=== PATIENT | male | born 1950 | race Caucasian/White ===

== ENCOUNTER → 2024-01-20 13:20 | Outpatient (REF) | payer OTHER, SELFPAY | LOC: RAD 13:20 | PROVIDERS: ATTENDING PHYSICIAN Internal Medicine; FAMILY PHYSICIAN Family Medicine | DX: I10 Essential (primary) hypertension (principal); N20.0 Calculus of kidney; N18.31 Chronic kidney disease, stage 3a | CPT/HCPCS: 76775 ==

== ENCOUNTER → 2024-03-01 13:55 | Outpatient (REF) | payer OTHER, SELFPAY | LOC: RAD 13:55 | PROVIDERS: ATTENDING PHYSICIAN Specialist; FAMILY PHYSICIAN Family Medicine; REFERRING PHYSICIAN Internal Medicine | DX: N20.0 Calculus of kidney (principal) | CPT/HCPCS: 74018 ==

== ENCOUNTER 2024-03-19 09:10 | Emergency (ER) | payer OTHER, SELFPAY ==
[2024-03-19 09:11] VITALS: BP 170/83
[2024-03-19 09:37] LABS: % Eosinophils 1.8 % (0-6); % Immature Granulocytes 0.4 % (0-0.5); % Lymphocytes 18.9 % (20.5-51.1); % Monocytes 7.4 % (1.7-9.3); % Neutrophils 70.5 % (42.2-75.2); Absolute Basophils 0.1 10^3/uL (0-0.2); Absolute Eosinophils 0.2 10^3/uL (0-0.7); Absolute Lymphocytes 1.8 10^3/uL (1.2-3.4); Absolute Monocytes 0.7 10^3/uL (0.1-0.6); Absolute Neutrophils 6.7 10^3/uL (1.4-6.5); Hematocrit 46.2 % (39.0-52.0); Hemoglobin 15.8 g/dL (13.0-18.0); Mean Corp Hgb Conc. 34.2 g/dL (33.0-37.0); Mean Corpuscular Hgb 30.7 pg (27.0-31.0); Mean Corpuscular Volume 89.7 fL (80.0-94.0); Mean Platelet Volume 9.6 fL (7.4-10.4); Nucleated Red Blood Cells % 0 % (-); Platelet Count 160 10^3/uL (130-400); Red Blood Cell Count 5.15 10^6/uL (4.70-6.10); Red Cell Dist. Width 12.4 % (11.5-14.5); White Blood Cell Count 9.4 10^3/uL (4.8-10.8)
[2024-03-19 10:01] LABS: ALT (SGPT) 33 U/L (0-50); AST (SGOT) 39 U/L (17-59); Albumin 4.7 g/dl (3.5-5.0); Alkaline Phosphatase 78 U/L (38-126); Blood Urea Nitrogen 18 mg/dl (9-20); Calcium 9.3 mg/dl (8.4-10.2); Carbon Dioxide 23 mmol/L (22-30); Chloride 102 mmol/L (98-107); Glucose 245 mg/dl (70-99); Potassium 4.4 mmol/L (3.5-5.1); Sodium 140 mmol/L (135-145); Total Bilirubin 0.7 mg/dl (0.2-1.3); Total Protein 7.1 g/dl (6.3-8.2); Urine Albumin Trace (Neg - Trace); Urine Bilirubin Negative (Negative); Urine Character Clear (Clear); Urine Color Yellow; Urine Glucose 3+ (Negative); Urine Ketone Negative (Negative); Urine Leukocyte Negative (Negative); Urine Nitrite Negative (Negative); Urine Occult Blood 2+ (Negative); Urine Urobilinogen Negative (Neg - 1+); eGFR 39.25
[2024-03-19 10:34] LABS: Urine Mucus Many
[2024-03-19 10:36] LABS: Urine Amorphous Seen; Urine Red Blood Cell 30-40 /HPF (0-2); Urine Squamous Cell 0-2 /LPF (Few); Urine White Cell 0-2 /HPF (0-5)
--- NOTE | 2024-03-19 11:46 | ED.GENMED ---
History of Present Illness
General
Chief Complaint: Flank Pain
Time Seen by Provider: 03/19/24 11:22
History of Present Illness
History of Present Illness:
Patient is a 73-year-old male with past medical history of type 2 diabetes mellitus, CAD with history of prior OR, hypertension, hyperlipidemia, sleep apnea on CPAP, prior tobacco use, glaucoma, and history of prior kidney stones, here today for
evaluation of a suspected kidney stone. Patient states approximately 1 hour prior to arrival he developed pain along his right lower quadrant/inguinal region. Pain is nonradiating. No back pain. No pain into the testicles. He endorses slight
discomfort with urination but denies hematuria. No fevers or vomiting. No diarrhea. Patient was last seen in October 2022 for a ureteral stone. He was found to have a 4 mm stone in the distal left ureter. Patient states his stones typically self
pass and he has never previously required lithotripsy or surgical intervention. Patient does currently follow with a urologist and chlorination operator.
Past History
Past History
ED Past Medical History: CAD, Cancer (Basal cell Skin cancer), HTN, Hypercholesterolemia, NIDDM, OR and Other (Diverticulitis, Kidney stones, Sleep apnea uses CPAP)
ED Past Surgical History: Cardiac (PTCA with stent mid LAD December 2017) and Orthopedic (Left knee arthroscopy, left arm bicept/tendon repair)
Social History
Tobacco: Former smoker (Occasional cigars)
Alcohol: None
Drug: None
Personal:
Living: with family
Employment: Employed
Family History
Family History: CAD
Review of Systems
Review of Systems
All Other Systems: ROS reviewed and negative except as documented in HPI and ROS
Phy Exam
Physical Exam
Physical Exam:
GENERAL: Alert , in no apparent distress
EYE: pupils equal and reactive
NECK: Supple, no significant adenopathy.
ENT: o/p clr, mmm.
CARDIAC: Regular rate and rhythm .
LUNGS: Clear breath sounds bilaterally, no acute respiratory distress, no wheezes/rales/rhonchi
ABDOMEN: Soft, without focal tenderness, no r/g, no cvat
GENITOURINARY: Normal anatomy. No tenderness. No masses. No swelling. No rashes or lesions
NEUROLOGICAL: Alert and oriented, no focal neuro deficits
SKIN: Warm and dry, skin intact.
MUSCULOSKELETAL: No edema, well perfused.
PSYCH: Normal and appropriate interaction.
Course
Orders/Labs/Results
Orders:
Orders
03/19/24 09:21
CT Abd/pel Without Iv Or Oral Urgent
Comment:
Reason For Exam: R sided kidney stone
03/19/24 09:28
CBC/With Diff [Complete Blood Count/With Diff] Urgent
Comprehensive Metabolic Panel Urgent
Urinalysis Reflex To Culture Urgent
Date Specimen was Collected: 03/19/24
Time Specimen was Collected: 09:17
Urine Microscopic Reflex Cult Urgent
03/19/24 12:55
0.9% Sodium Chloride 1000 ml [Nss] 1,000 ml IV BOLUS
Abnormal Lab Results
03/19/24
09:28
Absolute Neuts (auto) 6.7 H 10^3/uL
(1.4-6.5)
Absolute Monos (auto) 0.7 H 10^3/uL
(0.1-0.6)
Lymphocytes % 18.9 L %
(20.5-51.1)
Creatinine 1.8 H mg/dL
(0.7-1.3)
Glucose 245 H mg/dl
(70-99)
Ur Occult Blood Reflex 2+ A
(Negative)
Urine RBC 30-40 A /HPF
(0-2)
Urine Glucose 3+ A
(Negative)
03/19/24 09:28
03/19/24 09:28
Vital Signs
Initial and Last Documented VS:
Initial Vital Signs
Temp Pulse Resp BP Pulse Ox
98 F 60 18 170/83 98
03/19/24 09:11 03/19/24 09:11 03/19/24 09:11 03/19/24 09:11 03/19/24 09:11
Last Documented Vital Signs
Temp Pulse Resp BP Pulse Ox
98 F 58 16 125/74 97
03/19/24 09:11 03/19/24 14:00 03/19/24 14:00 03/19/24 14:00 03/19/24 14:00
MDM/Problems Addressed
Differential Diagnosis Includes:
Patient is a 73-year-old male with past medical history of type 2 diabetes mellitus, CAD with history of prior OR, hypertension, hyperlipidemia, sleep apnea on CPAP, prior tobacco use, glaucoma, and history of prior kidney stones, here today for
evaluation of a suspected kidney stone. Overall, patient appears very well. Physical examination described above. Workup initiated in triage. Pending laboratory studies and CT imaging. Pain well-controlled at this time.
03/19/2024 14:24: Labs reveal an elevated creatinine to 1.8 which is slightly elevated compared to prior of 1.3 in October 2022. Glucose elevated. Urinalysis with hematuria. CT scan of the abdomen and pelvis with IV contrast reveals obstructive
uropathy secondary to a 3 mm calculus at the right UVJ causing mild right hydroureteronephrosis. Patient made aware of findings. Case was made aware to the patient's urologist, Dr. Hernadez, who read message. Patient's pain is well-controlled.
No vomiting. He is able to tolerate p.o. No signs of a ureteral stone infection. Patient appears suitable to follow-up for outpatient therapy. He was provided with IV fluids. Will initiate therapy with Flomax. Recommend urine strainer. Will
recommend supportive measures, avoidance of NSAIDs given elevated creatinine, and close follow-up with urology. Patient voiced understanding. He appears well and stable for discharge. All questions answered. Return precautions given.
*Critical Care Note
Total Time (30-74mins, 75-104mins- exclusive of procedures): Not Applicable
ED Attending Note
-
Portions of this chart may have been created with voice recognition software.� Occasional wrong word or��sound alike� substitutions may have occurred due to the inherent limitations of voice recognition software.
Discharge Plan
Departure
Patient Disposition: Home (Routine Discharge)
Date of Disposition: 03/19/24
Time of Disposition: 14:13
Patient with high blood pressure during this ER visit?: Yes
Condition: Good
Covid-19: Not Applicable
Discharge Problem:
Calculus of right ureter, Elevated serum creatinine
Instructions: Kidney Stones (DC), Renal Colic (DC), How to Strain Your Urine
Prescriptions:
New
tamsulosin [Flomax] 0.4 mg capsule
0.4 mg PO DAILY 30 Days Qty: 30 0RF
No Action
losartan 50 MG tablet
50 mg PO DAILY
glipizide 5 MG tablet extended release 24hr
10 mg PO DAILY
ascorbate calcium (vitamin C) [Joselin-C] 500 MG tablet
500 mg PO DAILY
aspirin 81 MG tablet,chewable
81 mg PO DAILY
bimatoprost [Lumigan] 1 DROP drops
1 drp BOTH EYES HS
metoprolol succinate 25 MG tablet extended release 24 hr
25 mg PO DAILY Qty: 90 3RF
nitroglycerin 0.4 MG tablet, sublingual
0.4 mg sublingual [id number] PRN (Reason: chest pain) Qty: 25 3RF
metformin 500 MG tablet extended release 24hr
500 mg PO BID
simvastatin 20 MG tablet
20 mg PO QPM
ondansetron 4 MG tablet,disintegrating
4 mg PO TIDPRN PRN (Reason: nausea/vomiting) Qty: 12 0RF
tamsulosin 0.4 MG capsule
0.4 mg PO DAILY Qty: 7 0RF
oxycodone-acetaminophen 5 MG/325 MG tablet
1 tab PO Q4HPRN PRN (Reason: pain) Qty: 7 0RF
oxycodone-acetaminophen 5 MG/325 MG tablet
1 tab PO Q4HPRN PRN (Reason: pain) Qty: 7 0RF
hydrocodone-acetaminophen 1 TABLET tablet
1 tab PO Q4HPRN PRN (Reason: severe pain) Qty: 10 0RF
tamsulosin 0.4 MG capsule
0.4 mg PO DAILY Qty: 14 0RF
ondansetron 4 MG tablet,disintegrating
4 mg PO Q8HPRN PRN (Reason: Nausea/Vomiting) Qty: 10 0RF
tamsulosin 0.4 MG capsule
0.4 mg PO DAILY Qty: 7 0RF
tamsulosin [Flomax] 0.4 mg capsule
0.4 mg PO HS Qty: 10 0RF
ondansetron 4 mg tablet,disintegrating
4 mg PO Q8H PRN (Reason: nausea and vomiting) Qty: 10 0RF
oxycodone-acetaminophen [Percocet] 5-325 mg tablet
1 tab PO Q4HPRN PRN (Reason: pain) Qty: 10 0RF
Referrals:
Luke Hernadez MD [Active] - Follow up in 10 days
Tad Barros DO [Family Provider] - Follow up in 5-7 days
Activity Restrictions/Additional Instructions:
You were seen today for evaluation of right sided abdominal pain.
Your CAT scan reveals evidence of a kidney stone along the right side.
Drink plenty of fluids to remain hydrated. Take awmy-ovb-[id number] Tylenol (acetaminophen) as directed as needed for pain. Avoid NSAIDs such as ibuprofen, Advil, Motrin, Aleve, naproxen, and Naprosyn given your kidney function is elevated.
Your blood work reveals an elevated kidney function to 1.8 (creatinine level). Please have this rechecked and monitored by your doctor.
Follow-up with your doctor within the next 5 to 7 days for close reevaluation. We also recommend following up with a urologist within the next 10 days for reevaluation.
Return for any new, worsening, or concerning symptoms.
Interventions
Interventions:
*Risk Screen - Suicide Last Done: 03/19/24 09:11
*General Assessment Last Done: 03/19/24 09:11
*Neglect/Abuse Screening Last Done: 03/19/24 09:11
ED- Fall Risk Assessment Last Done: 03/19/24 12:01
*ED COVID-19 Vaccine History Last Done: 03/19/24 12:01
*Nursing Disposition Last Done: 03/19/24 14:31
XM-Uvreiy-Gwbaagwkxx Assessment Last Done: 03/19/24 12:01
ED-Male Genitourinary Assessment Last Done: 03/19/24 12:01
Discharge Date and Time
Discharge Date/Time: 03/19/24 14:33
Print Language: MALTESE
[2024-03-19 12:00] VITALS: BP 118/64
[2024-03-19 12:01] VITALS: BMI 28.8
--- NOTE | 2024-03-19 13:27 | EDRN ---
Yadira Rose PA in to see ptMorteza
--- NOTE | 2024-03-19 13:31 | EDRN ---
pt stated pain is 6/10 and this RN mentioned pain medications and pt declined anything for his pain at this time.
[2024-03-19 13:40] VITALS: BP 146/85
[2024-03-19] MEDS: NSS 1000 IV (13:44)
[2024-03-19 14:00] VITALS: BP 125/74
== END 2024-03-19 14:33 | disposition home or self-care (01) ==
LOC: EMR 09:10
PROVIDERS: Emergency Medicine; EMERGENCY PHYSICIAN Emergency Medicine; FAMILY PHYSICIAN Family Medicine
DX: N20.1 Calculus of ureter (principal); R79.89 Other specified abnormal findings of blood chemistry; E11.9 Type 2 diabetes mellitus without complications; E78.00 Pure hypercholesterolemia, unspecified; G47.30 Sleep apnea, unspecified; I10 Essential (primary) hypertension; I25.10 Atherosclerotic heart disease of native coronary artery without angina pectoris; Z82.49 Family history of ischemic heart disease and other diseases of the circulatory system; Z85.828 Personal history of other malignant neoplasm of skin; Z87.442 Personal history of urinary calculi; Z87.891 Personal history of nicotine dependence; Z95.5 Presence of coronary angioplasty implant and graft
CPT/HCPCS: 99284; 74176; 80053; 81003; 81015; 85025

== ENCOUNTER 2024-03-29 04:25 | Emergency (ER) | payer OTHER, SELFPAY ==
[2024-03-29] VITALS (8 sets, daily range): BP systolic 132–173; BP diastolic 63–87; BMI 27.9
--- NOTE | 2024-03-29 05:55 | EDRN ---
Pt woke around [id number] with pain on R side of his head wrapping around R ear, radiating into his R jaw. Pt took two ES tylenol which have not helped the pain. Pt says his bp usually runs 120-130/80-85. Pt denies cp, sob, photophobia, dizziness,
visual/ambulatory disturbance, fever/chills, n/v, rash.
--- NOTE | 2024-03-29 06:00 | ED.GENMED ---
History of Present Illness
<Isis Espinal MD, Resident - Last Filed: 03/29/24 09:23>
General
Chief Complaint: Headache
Source: patient and significant other
Exam Limitations: none
Time Seen by Provider: 03/29/24 05:59
Nursing documentation reviewed up to this point in time: agreed with
Travel History
Have you traveled to any high risk areas for coronavirus over the past 14 days?: No
Have you had any contact with someone who has COVID-19?: No
Do you have any symptoms of coronavirus? Fever > 100 degrees, chills, cough, shortness of breath, sore throat, loss of taste or smell, muscle aches, or headache?: No
History of Present Illness
History of Present Illness:
Mr. Loya, 73-year-old male with PMHx significant for diabetes, hypertension, CAD s/p PCI in 2018, [place] on CPAP, ex-smoker, history of glaucoma presents to the emergency room with a headache that woke him up from the sleep at 3 AM in the morning
today. His headache was throbbing, unilateral isolated to the right side, frontal initially about 7-8/10 in intensity, and is radiating into his right jaw. he took 2 doses of Tylenol that improved his headache to 5/10 in intensity now. He denies
having blurring of vision, nausea, vomitings, weakness in limbs, paresthesias, fevers, chills, neck stiffness, fatigue, chest pain, palpitations, shortness of breath, orthopnea and PND.
[place] and returned back home on Friday night. He denies any exposure to having sick contacts or traveling outside the country.
If applicable-neuro sx onset
Onset of symptoms known: No
Time pt last seen normal is known: Yes
Date last time pt seen normal: 03/29/24
Past History
<Isis Espinal MD, Resident - Last Filed: 03/29/24 09:23>
Past History
ED Past Medical History: CAD, Cancer (Basal cell Skin cancer), HTN, Hypercholesterolemia, NIDDM, SD and Other (Diverticulitis, Kidney stones, Sleep apnea uses CPAP)
ED Past Surgical History: Cardiac (PTCA with stent mid LAD December 2017) and Orthopedic (Left knee arthroscopy, left arm bicept/tendon repair)
Patient has exhibited threatening behavior?: No
Social History
Tobacco: Former smoker (Occasional cigars)
Alcohol: None
Drug: None
Personal:
Living: with family
Employment: Employed
Family History
Family History: CAD
Review of Systems
<Isis Espinal MD, Resident - Last Filed: 03/29/24 09:23>
Review of Systems
Allergies reviewed?: No
Constitutional: Reports no symptoms
EENT: Reports no symptoms
Respiratory: Reports no symptoms
Cardiac: Reports no symptoms
ABD/GI: Reports no symptoms; Denies abdominal pain, nausea or vomiting
: Reports no symptoms
Musculoskeletal: Reports no symptoms
Skin: Reports no symptoms
Neurological: Reports headache; Denies dizzy, weakness or numbness
Endocrine: Reports no symptoms
Hematologic/Lymphatic: Reports no symptoms
Psychiatric: Reports no symptoms
Phy Exam
<Isis Espinal MD, Resident - Last Filed: 03/29/24 09:23>
General Physical Exam
General Presentation: well appearing and no apparent distress
General age: appears stated age
General Skin: warm
General Habitus: normal
General Hydration: appears well hydrated
ENT Exam
ENT Exam: EOMI, TM's normal and neck supple
Eye Exam
Eye Exam: PERRL, EOMI, cornea clear, conjunctiva normal and visual rosenbaum normal
Pupil Exam: Bilateral: round and reactive
Conjunctival Changes: bilateral: none
Pupil and Lens Exam: round pupil: Bilateral
Cardiovascular Exam
Cardiovascular Exam: regular rate/rhythm, no gallop, no JVD, no murmur and no carotid bruit
Heart Sounds: normal
ARELI Score
Is patient's age greater than or equal to 65 years: Yes
Does patient have 3 or more CAD risk factors?: Yes
Does patient have known CAD: Yes
Has patient used ASA in past seven days?: Yes
Has patient had severe angina in past 24 hrs?: No
Pulmonary Exam
Pulmonary Exam: lungs clear, no respiratory distress, no rales, no crackles, no rhonchi and no wheezing
Oxygen Status: room air
Cough: no cough
Gastrointestinal Exam
Gastrointestinal Exam: normal bowel sounds, non tender, soft and non distended
Palpation: generalized: No tenderness
Neurological Exam
Neurological Exam: alert, oriented x3, CN II-XII intact, no motor deficits, no sensory deficits, speech normal, cerebellum intact and normal gait
NIH Stroke Score
Level of Consciousness: 0 - Alert
LOC Commands: 0-Performs both correctly
Best Gaze: 0-Normal
Visual Rosenbaum: 0=Normal, no visual loss
Facial palsy: 0=Normal, symmetrical
Motor - Right Arm: 0=No drift 10 seconds
Motor - Left Arm: 0=No drift 10 seconds
Motor - Right Le-No drift 5 seconds
Musculoskeletal Exam
Musculoskeletal Exam: full ROM and no edema
Skin Exam
Skin Exam: warm/dry
Psychiatric Exam
Psychiatric Exam: normal mood/affect
Course
<Isis Espinal MD, Resident - Last Filed: 03/29/24 09:23>
Orders/Labs/Results
Orders:
Orders
03/29/24 04:39
EKG [Electrocardiogram (*1)] Urgent
Reason for Study: CAD
EKG- Treatment ONCE
03/29/24 06:35
Cardiac Monitoring- Treatment ONCE
0.9% Sodium Chloride 500 ml [Nss] 500 ml IV BOLUS
O2 Therapy [RESP] Stat
Titrate/Wean O2 to maintain O2 sat greater than (%): 92
Pulse Ox/cont/shift [RESP] Stat
Quantity: 1
03/29/24 06:36
CT Head W/o Iv Contrast Urgent
Comment:
Reason For Exam: Headache
CT Neck Angio W/wo Iv Contrast Urgent
Comment:
Reason For Exam: unilateral headache
03/29/24 06:42
Basic Metabolic Panel Urgent
Complete Blood Count/With Diff Urgent
Erythrocyte Sed Rate Urgent
Troponin I Stat
03/29/24 08:46
Potassium Urgent
03/29/24 09:23
Electrocardiogram (*1) Urgent
Reason for Study: CAD
EKG- Treatment ONCE
03/29/24 09:45
Troponin I Urgent
Abnormal Lab Results
03/29/24
06:42
RBC 4.59 L 10^6/uL
(4.70-6.10)
Abs Immat Gran (auto) 0.1 H 10^3/uL
(0-0.05)
Absolute Monos (auto) 0.7 H 10^3/uL
(0.1-0.6)
Immature Gran % 0.7 H %
(0-0.5)
BUN 32 H mg/dl
(9-20)
Glucose 185 H mg/dl
(70-99)
03/29/24 06:42
03/29/24 08:46
Vital Signs
Initial and Last Documented VS:
Initial Vital Signs
Temp Pulse Resp BP Pulse Ox
98.4 F 64 18 173/87 99
03/29/24 04:25 03/29/24 04:25 03/29/24 04:25 03/29/24 04:25 03/29/24 04:25
Last Documented Vital Signs
Temp Pulse Resp BP Pulse Ox
98.4 F 63 22 132/63 99
03/29/24 04:25 03/29/24 08:47 03/29/24 08:47 03/29/24 10:00 03/29/24 04:25
<Tad Guajardo MD - Last Filed: 03/29/24 10:40>
Orders/Labs/Results
Orders:
Orders
03/29/24 04:39
EKG [Electrocardiogram (*1)] Urgent
Reason for Study: CAD
EKG- Treatment ONCE
03/29/24 06:35
Cardiac Monitoring- Treatment ONCE
0.9% Sodium Chloride 500 ml [Nss] 500 ml IV BOLUS
O2 Therapy [RESP] Stat
Titrate/Wean O2 to maintain O2 sat greater than (%): 92
Pulse Ox/cont/shift [RESP] Stat
Quantity: 1
03/29/24 06:36
CT Head W/o Iv Contrast Urgent
Comment:
Reason For Exam: Headache
CT Neck Angio W/wo Iv Contrast Urgent
Comment:
Reason For Exam: unilateral headache
03/29/24 06:42
Basic Metabolic Panel Urgent
Complete Blood Count/With Diff Urgent
Erythrocyte Sed Rate Urgent
Troponin I Stat
03/29/24 08:46
Potassium Urgent
03/29/24 09:23
Electrocardiogram (*1) Urgent
Reason for Study: CAD
EKG- Treatment ONCE
03/29/24 09:45
Troponin I Urgent
Abnormal Lab Results
03/29/24
06:42
RBC 4.59 L 10^6/uL
(4.70-6.10)
Abs Immat Gran (auto) 0.1 H 10^3/uL
(0-0.05)
Absolute Monos (auto) 0.7 H 10^3/uL
(0.1-0.6)
Immature Gran % 0.7 H %
(0-0.5)
BUN 32 H mg/dl
(9-20)
Glucose 185 H mg/dl
(70-99)
03/29/24 06:42
03/29/24 08:46
Vital Signs
Initial and Last Documented VS:
Initial Vital Signs
Temp Pulse Resp BP Pulse Ox
98.4 F 64 18 173/87 99
03/29/24 04:25 03/29/24 04:25 03/29/24 04:25 03/29/24 04:25 03/29/24 04:25
Last Documented Vital Signs
Temp Pulse Resp BP Pulse Ox
98.4 F 63 22 132/63 99
03/29/24 04:25 03/29/24 08:47 03/29/24 08:47 03/29/24 10:00 03/29/24 04:25
<Isis Espinal MD, Resident - Last Filed: 03/29/24 09:23>
Comment
Comment:
No evidence of carotid artery dissection or hemorrhage on CT neck angiogram and CT head respectively.
*Radiology
Radiology exam reviewed: preliminary read by ED provider and radiology read reviewed
*Pulse Oximetry
Patient hypoxic: no
*EKG
Interpreted by ED Provider?: Yes
Interpretation: normal
Comparison EKG: changes noted
Rate: bradycardiac
Rhythm: sinus
Interval: normal interval
QRS Pattern: normal QRS
Ischemia: no ischemia
*Critical Care Note
Total Time (30-74mins, 75-104mins- exclusive of procedures): Not Applicable
<Isis Espinal MD, Resident - Last Filed: 03/29/24 09:23>
Comment
Comment:
None.
<Isis Espinal MD, Resident - Last Filed: 03/29/24 09:23>
Update Note
Update Note:
No evidence of acute arterial dissection or hemorrhage. Suspect temporal arteritis versus TMJ disorder. Recommend djzr-[id number] Tylenol and follow-up with primary care physician.
ED Attending Note
<Isis Espinal MD, Resident - Last Filed: 03/29/24 09:23>
-
Portions of this chart may have been created with voice recognition software.� Occasional wrong word or��sound alike� substitutions may have occurred due to the inherent limitations of voice recognition software.
<Tad Guajardo MD - Last Filed: 03/29/24 10:40>
ED Attending Note
Patient seen and examined by attending physician: Yes
I performed a history and physical exam of patient and discussed management with resident, I reviewed resident's note and agree with documented findings and plan of care.: Yes
ED Attending Note:
73-year-old male presents with right-sided jaw pain. Some pain to the right face and right posterior neck. Started 3 AM. No nausea or vomiting. No visual issues. No chest pain or shortness of breath. No neurologic issues.
GENERAL: Alert and oriented in no apparent distress
EYE: Orbits normal. Nontender
NECK: Supple, no carotid bruit
ENT: Pharynx without erythema. Some tenderness to the right TMJ
CARDIAC: Regular rate and rhythm without any obvious murmurs.
LUNGS: Clear breath sounds,normal
ABDOMEN: Soft, without focal tenderness or distention
NEUROLOGICAL: Alert and oriented , cranial nerves II through XII intact. Speech normal. Akbpah-dt-nfzq normal. Tgxa-rs-tflj normal. Eye confrontation normal. Light touch intact.
SKIN: Warm and dry, no rash or lesion, no discoloration, skin intact.
MUSCULOSKELETAL: No edema,no deformity.Good color
PSYCH: Normal and appropriate interaction.
Impression nontraumatic relatively sudden onset of right TMJ like pain. Cardiac workup completeness although doubt cardiac. CT head to rule out bleed although low clinical suspicion. CT angio of the neck to rule out dissection. This
1040... Repeat troponin negative. Repeat EKG stable with no acute changes. Very low suspicion is a primary cardiac etiology. Only complaining of right TMJ like pain workup unremarkable. Stable for discharge. Copy of CT report given to patient
to follow-up the thyroid nodule and was stressed to follow-up with vascular surgery with a known carotid stenosis
Discharge Plan
Departure
Patient Disposition: Home (Routine Discharge)
Date of Disposition: 03/29/24
Time of Disposition: 09:10
Patient with high blood pressure during this ER visit?: Yes
Condition: Good
Discharge Problem:
Right-sided headache, Autonomous thyroid nodule, Asymptomatic carotid artery stenosis
Instructions: Headache, Adult (DC), BLOOD PRESSURE
Prescriptions:
No Action
losartan 50 MG tablet
50 mg PO DAILY
aspirin 81 MG tablet,chewable
81 mg PO DAILY
Lumigan 1 DROP drops
1 drp BOTH EYES HS
metoprolol succinate 25 MG tablet extended release 24 hr
25 mg PO DAILY Qty: 90 3RF
nitroglycerin 0.4 MG tablet, sublingual
0.4 mg sublingual [id number] PRN (Reason: chest pain) Qty: 25 3RF
simvastatin 20 MG tablet
20 mg PO QPM
glipizide 10 mg Tablet
10 mg PO DAILY
metformin 1,000 mg Tablet
1,000 mg PO BID
insulin glargine [Lantus Solostar U-100 Insulin] 100 unit/mL (3 mL) Insulin Pen
10 unit SC HS
icosapent ethyl [Vascepa] 1 gram Capsule
4 g PO DAILY
Praluent Pen 75 mg/mL Pen Injector
75 mg SC Q2W
potassium citrate
1 tab PO BID
Patient Comments:
pt does not know dosage
Referrals:
Tad Barros DO [Family Provider] -
Matti Bonds MD [Active] -
Interventions
Interventions:
*Risk Screen - Suicide Last Done: 03/29/24 04:25
*General Assessment Last Done: 03/29/24 05:48
*Neglect/Abuse Screening Last Done: 03/29/24 04:25
ED- Fall Risk Assessment Last Done: 03/29/24 05:48
*ED COVID-19 Vaccine History Last Done: 03/29/24 05:48
ED- Neurological Assessment Last Done: 03/29/24 05:48
Discharge Date and Time
Print Language: SYRIAC
[2024-03-29 07:00] LABS: % Basophils 0.8 % (0-2); % Eosinophils 2.8 % (0-6); % Immature Granulocytes 0.7 % (0-0.5); % Lymphocytes 25.6 % (20.5-51.1); % Monocytes 8.7 % (1.7-9.3); % Neutrophils 61.4 % (42.2-75.2); Absolute Basophils 0.1 10^3/uL (0-0.2); Absolute Eosinophils 0.2 10^3/uL (0-0.7); Absolute Immature Granulocytes 0.1 10^3/uL (0-0.05); Absolute Lymphocytes 1.9 10^3/uL (1.2-3.4); Absolute Monocytes 0.7 10^3/uL (0.1-0.6); Absolute Neutrophils 4.6 10^3/uL (1.4-6.5); Hematocrit 40.5 % (39.0-52.0); Hemoglobin 13.7 g/dL (13.0-18.0); Mean Corp Hgb Conc. 33.8 g/dL (33.0-37.0); Mean Corpuscular Hgb 29.8 pg (27.0-31.0); Mean Corpuscular Volume 88.2 fL (80.0-94.0); Mean Platelet Volume 9.3 fL (7.4-10.4); Nucleated Red Blood Cells % 0 % (-); Platelet Count 198 10^3/uL (130-400); Red Blood Cell Count 4.59 10^6/uL (4.70-6.10); Red Cell Dist. Width 12.5 % (11.5-14.5); White Blood Cell Count 7.4 10^3/uL (4.8-10.8)
[2024-03-29 07:18] LABS: Blood Urea Nitrogen 32 mg/dl (9-20); Calcium 9.3 mg/dl (8.4-10.2); Carbon Dioxide 23 mmol/L (22-30); Chloride 103 mmol/L (98-107); Estimated Creatinine Clearance 51 ml/min; Glucose 185 mg/dl (70-99); Sodium 139 mmol/L (135-145); eGFR 58.01
[2024-03-29 07:23] LABS: Troponin I 0.014 ng/ml
[2024-03-29] MEDS: NSS 500 IV (07:35)
[2024-03-29 08:14] LABS: Erythrocyte Sed Rate 10 mm/hour (0-20)
[2024-03-29 09:09] LABS: Potassium 4.2 mmol/L (3.5-5.1)
[2024-03-29 10:20] LABS: Troponin I < 0.012 ng/ml
== END 2024-03-29 11:09 | disposition home or self-care (01) ==
LOC: EMR 04:25
PROVIDERS: Student in an Organized Health Care Education/Training Program; EMERGENCY PHYSICIAN Emergency Medicine; FAMILY PHYSICIAN Family Medicine
DX: R51.9 Headache, unspecified (principal); E04.1 Nontoxic single thyroid nodule; I65.29 Occlusion and stenosis of unspecified carotid artery; E11.9 Type 2 diabetes mellitus without complications; I10 Essential (primary) hypertension; I25.10 Atherosclerotic heart disease of native coronary artery without angina pectoris
CPT/HCPCS: 99285; 96360; 96361; 70450; 70498; 80048; 84132; 84484; 85025; 85652; 93005; Q9967

== ENCOUNTER 2024-09-03 08:55 | Emergency (ER) | payer OTHER, SELFPAY ==
[2024-09-03 08:57] VITALS: BP 190/97
[2024-09-03 09:14] VITALS: BP 148/78
--- NOTE | 2024-09-03 09:20 | ED.GENMED ---
History of Present Illness
General
Chief Complaint: Headache
Source: patient and spouse
Exam Limitations: none
Time Seen by Provider: 09/03/24 09:06
Nursing documentation reviewed up to this point in time: agreed with
History of Present Illness
History of Present Illness:
73-year-old male past medical history of CAD hypertension hyperlipidemia diabetes presenting to the emergency department today with concerns of a headache that he woke up with 2 hours ago. He also has some sensitivity to light. Denies neck pain
denies fevers denies recent illness denies any trauma no numbness or weakness. No chest pain.
Past History
Past History
ED Past Medical History: CAD, Cancer (Basal cell Skin cancer), HTN, Hypercholesterolemia, NIDDM, [place] and Other (Diverticulitis, Kidney stones, Sleep apnea uses CPAP)
ED Past Surgical History: Cardiac (PTCA with stent mid LAD December 2017) and Orthopedic (Left knee arthroscopy, left arm bicept/tendon repair)
Patient has exhibited threatening behavior?: No
Social History
Tobacco: Former smoker (Occasional cigars)
Alcohol: None
Drug: None
Personal:
Living: with family
Employment: Employed
Family History
Family History: CAD
Review of Systems
Review of Systems
Allergies reviewed?: Yes
All Other Systems: ROS reviewed and negative except as documented in HPI and ROS
Phy Exam
Physical Exam
Physical Exam:
GENERAL: Alert , in no apparent distress
EYE: pupils equal and reactive
NECK: Supple, no significant adenopathy.
ENT: o/p clr, mmm.
CARDIAC: Regular rate and rhythm .
LUNGS: Clear breath sounds bilaterally, no acute respiratory distress, no wheezes/rales/rhonchi
ABDOMEN: Soft, without focal tenderness, no r/g, no cvat
NEUROLOGICAL: Alert and oriented, no focal neuro deficits 5 out of 5 upper and lower extremity strength normal sensation with palpating bilaterally normal finger-nose and [id number] no pronator drift
SKIN: Warm and dry, skin intact.
MUSCULOSKELETAL: No edema, well perfused.
PSYCH: Normal and appropriate interaction.
Course
Orders/Labs/Results
Orders:
Orders
09/03/24 09:15
Electrocardiogram (*1) Stat
Reason for Study: Other
Other Reason for Exam: Headache
CT Head W/o Iv Contrast Urgent
Comment:
Reason For Exam: severe TUCKER x2 hours
EKG- Treatment ONCE
Metoclopramide [Reglan] 10 mg IV NOW STA
09/03/24 09:24
Complete Blood Count/With Diff Urgent
Comprehensive Metabolic Panel Urgent
09/03/24 11:51
Ketorolac [Toradol] 15 mg IV NOW STA
Abnormal Lab Results
09/03/24
09:24
Absolute Monos (auto) 0.7 H 10^3/uL
(0.1-0.6)
Monocytes % 9.8 H %
(1.7-9.3)
Glucose 242 H mg/dl
(70-99)
Total Protein 6.0 L g/dl
(6.3-8.2)
09/03/24 09:24
09/03/24 09:24
Vital Signs
Initial and Last Documented VS:
Initial Vital Signs
Temp Pulse Resp BP Pulse Ox
98.0 F 62 16 190/97 98
09/03/24 08:57 09/03/24 08:57 09/03/24 08:57 09/03/24 08:57 09/03/24 08:57
Last Documented Vital Signs
Temp Pulse Resp BP Pulse Ox
98.0 F 68 16 125/86 95
09/03/24 08:57 09/03/24 12:08 09/03/24 09:25 09/03/24 12:00 09/03/24 12:00
MDM/Problems Addressed
MDM/Problems Addressed:
73-year-old male presenting to the emergency department today with concerns of a headache that he woke up with mainly to his forehead. Denies any preceding symptoms. Associated photophobia but no additional symptoms otherwise. Normal neurologic
examination here. No neck pain. No fevers . Blood pressure elevated otherwise vital signs are normal. Head CT without emergent findings. Significant improvement of symptoms after receiving Toradol and Reglan. Blood pressure improving to
normal. At this point no emergent findings stable for outpatient management return precautions given.
*Critical Care Note
Total Time (30-74mins, 75-104mins- exclusive of procedures): Not Applicable
ED Attending Note
-
Portions of this chart may have been created with voice recognition software.� Occasional wrong word or��sound alike� substitutions may have occurred due to the inherent limitations of voice recognition software.
Discharge Plan
Departure
Patient Disposition: Home (Routine Discharge)
Date of Disposition: 09/03/24
Time of Disposition: 13:18
Patient with high blood pressure during this ER visit?: No
Condition: Good
Covid-19: Not Applicable
Discharge Problem:
Headache
Instructions: Headache, Adult (DC)
Prescriptions:
No Action
losartan 50 MG tablet
50 mg PO DAILY
aspirin 81 MG tablet,chewable
81 mg PO DAILY
Lumigan 1 DROP drops
1 drp BOTH EYES HS
metoprolol succinate 25 MG tablet extended release 24 hr
25 mg PO DAILY Qty: 90 3RF
nitroglycerin 0.4 MG tablet, sublingual
0.4 mg sublingual [id number] PRN (Reason: chest pain) Qty: 25 3RF
simvastatin 20 MG tablet
20 mg PO QPM
glipizide 10 mg Tablet
10 mg PO DAILY
metformin 1,000 mg Tablet
1,000 mg PO BID
insulin glargine [Lantus Solostar U-100 Insulin] 100 unit/mL (3 mL) Insulin Pen
10 unit SC HS
icosapent ethyl [Vascepa] 1 gram Capsule
4 g PO DAILY
Praluent Pen 75 mg/mL Pen Injector
75 mg SC Q2W
potassium citrate
1 tab PO BID
Patient Comments:
pt does not know dosage
Referrals:
Tad Barros, [Family Provider] -
Activity Restrictions/Additional Instructions:
You came to the emergency department today with concerns of headache. Here you have a reassuring assessment. Please follow closely with your primary care doctor for any ongoing symptoms. Return for any worsening, new or concerning symptoms.
Interventions
Interventions:
*Risk Screen - Suicide Last Done: 09/03/24 08:57
*General Assessment Last Done: 09/03/24 09:25
*Neglect/Abuse Screening Last Done: 09/03/24 08:57
*ED- Fall Risk Assessment Last Done: 09/03/24 09:25
*ED COVID-19 Vaccine History Last Done: 09/03/24 09:25
ED- Neurological Assessment Last Done: 09/03/24 09:26
Discharge Date and Time
Print Language: NIGERIEN
[2024-09-03] MEDS: REGLAN 10 MG IV (09:21)
[2024-09-03 09:30] LABS: % Basophils 1.2 % (0-2); % Eosinophils 2.9 % (0-6); % Immature Granulocytes 0.5 % (0-0.5); % Lymphocytes 28.1 % (20.5-51.1); % Monocytes 9.8 % (1.7-9.3); % Neutrophils 57.5 % (42.2-75.2); Absolute Basophils 0.1 10^3/uL (0-0.2); Absolute Eosinophils 0.2 10^3/uL (0-0.7); Absolute Lymphocytes 1.9 10^3/uL (1.2-3.4); Absolute Monocytes 0.7 10^3/uL (0.1-0.6); Absolute Neutrophils 3.8 10^3/uL (1.4-6.5); Hematocrit 42.9 % (39.0-52.0); Hemoglobin 14.6 g/dL (13.0-18.0); Mean Corpuscular Hgb 30.2 pg (27.0-31.0); Mean Corpuscular Volume 88.6 fL (80.0-94.0); Mean Platelet Volume 9.3 fL (7.4-10.4); Nucleated Red Blood Cells % 0 % (-); Platelet Count 182 10^3/uL (130-400); Red Blood Cell Count 4.84 10^6/uL (4.70-6.10); Red Cell Dist. Width 12.5 % (11.5-14.5); White Blood Cell Count 6.6 10^3/uL (4.8-10.8)
[2024-09-03 09:42] LABS: ALT (SGPT) 29 U/L (0-50); AST (SGOT) 29 U/L (17-59); Albumin 3.8 g/dl (3.5-5.0); Alkaline Phosphatase 73 U/L (38-126); Blood Urea Nitrogen 19 mg/dl (9-20); Calcium 8.9 mg/dl (8.4-10.2); Carbon Dioxide 25 mmol/L (22-30); Chloride 105 mmol/L (98-107); Glucose 242 mg/dl (70-99); Potassium 4.6 mmol/L (3.5-5.1); Sodium 139 mmol/L (135-145); Total Bilirubin 0.7 mg/dl (0.2-1.3); eGFR > 60.00
[2024-09-03] MEDS: TORADOL 15 MG IV (11:57)
[2024-09-03 12:00] VITALS: BP 125/86
[2024-09-03 13:00] VITALS: BP 132/69
== END 2024-09-03 13:37 | disposition home or self-care (01) ==
LOC: EMR 08:55
PROVIDERS: Physician Assistant; EMERGENCY PHYSICIAN Emergency Medicine; FAMILY PHYSICIAN Family Medicine
DX: R51.9 Headache, unspecified (principal); I10 Essential (primary) hypertension; I25.10 Atherosclerotic heart disease of native coronary artery without angina pectoris; E78.00 Pure hypercholesterolemia, unspecified; Z87.891 Personal history of nicotine dependence
CPT/HCPCS: 99285; 96374; 96375; 70450; 80053; 85025; 93005

== ENCOUNTER → 2024-12-23 07:00 | Outpatient (REF) | payer OTHER, SELFPAY | LOC: RAD 07:00 | PROVIDERS: ATTENDING PHYSICIAN Surgery Vascular Surgery; FAMILY PHYSICIAN Family Medicine | DX: I65.21 Occlusion and stenosis of right carotid artery (principal) | CPT/HCPCS: 93880 ==

== ENCOUNTER 2025-01-31 13:02 | Outpatient (RCR) | payer OTHER, SELFPAY | END 2025-01-31 23:59 | disposition home or self-care (01) | LOC: RPT 13:02 | PROVIDERS: ATTENDING PHYSICIAN Psychiatry & Neurology Neurology; FAMILY PHYSICIAN Family Medicine | DX: R27.0 Ataxia, unspecified (principal); Z73.6 Limitation of activities due to disability; G62.9 Polyneuropathy, unspecified; E08.42 Diabetes mellitus due to underlying condition with diabetic polyneuropathy | CPT/HCPCS: 97110; 97112; 97162; 97530 ==

== ENCOUNTER 2025-03-07 13:50 | Outpatient (RCR) | payer OTHER, SELFPAY | END 2025-03-07 23:59 | disposition home or self-care (01) | LOC: RPT 13:50 | PROVIDERS: ATTENDING PHYSICIAN Psychiatry & Neurology Neurology; FAMILY PHYSICIAN Family Medicine | DX: R27.0 Ataxia, unspecified (principal); Z73.6 Limitation of activities due to disability; E08.42 Diabetes mellitus due to underlying condition with diabetic polyneuropathy; G62.9 Polyneuropathy, unspecified | CPT/HCPCS: 97110; 97112; 97530 ==

== ENCOUNTER 2025-03-15 10:20 | Outpatient (RCR) | payer OTHER, SELFPAY | END 2025-03-15 23:59 | disposition home or self-care (01) | LOC: RPT 10:20 | PROVIDERS: ATTENDING PHYSICIAN Psychiatry & Neurology Neurology; FAMILY PHYSICIAN Family Medicine | DX: R27.0 Ataxia, unspecified (principal); Z73.6 Limitation of activities due to disability; E08.42 Diabetes mellitus due to underlying condition with diabetic polyneuropathy; G62.9 Polyneuropathy, unspecified | CPT/HCPCS: 97110; 97112 ==